=== PATIENT | female | born 1965 | race Caucasian/White ===

== ENCOUNTER 2022-05-05 09:37 | Emergency (ER) | payer OTHER ==
[2022-05-05 10:12] VITALS: PULSE 65; O2SAT 98
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
[2022-05-05 10:40] LABS: Basophil (Absolute #) 0.02 x10^3/uL (0-0.4); Eosinophil % 2.7 % (0.00-5.0); Eosinophil (Absolute #) 0.11 x10^3/uL (0-0.5); Hematocrit 38.9 % (35-47); Hemoglobin 12.5 g/dL (12.0-16.0); Lymphocyte (Absolute #) 1.66 x10^3/uL (1.0-4.6); Lymphocytes % 40.6 % (24.0-44.0); Mean Corpuscular Hemoglobin 30.2 pg (26-32); Mean Corpuscular Hgb Concent. 32.1 g/dL (32-36); Mean Platelet Volume 9.7 fL (7.5-11.0); Monocyte (Absolute #) 0.29 x10^3/uL (0.0-1.3); Monocytes % 7.1 % (0.0-12.0); Neutrophil % 48.9 % (36.0-66.0); Platelet Count 190 x10^3/uL (150-450); Red Blood Count 4.14 x10^6/uL (4.1-5.4); White Blood Count 4.1 x10^3/uL (4.0-10.5)
[2022-05-05 10:52] LABS: Epithelial Cells RARE /HPF (FEW)
[2022-05-05 10:53] LABS: Appearance CLEAR (CLEAR); Bilirubin NEGATIVE (NEGATIVE); Glucose NEGATIVE (NEGATIVE); Ketones NEGATIVE (NEGATIVE); RBC NEGATIVE Ery/ul (0-5)
[2022-05-05 10:54] LABS: Dipstick done @ ? MAIN LAB; Nitrite NEGATIVE (NEGATIVE); Protein,Urine Dip NEGATIVE (Negative); Urine Cultured Indicated? NO; Urobilinogen 0.2 mg/dL (0-1)
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
[2022-05-05 11:04] VITALS: BP 135/89
== END 2022-05-05 11:10 | disposition home or self-care (01) ==
LOC: ED 09:37
DX: S16.1XXA Strain of muscle, fascia and tendon at neck level, initial encounter (principal); S00.03XA Contusion of scalp, initial encounter; S00.83XA Contusion of other part of head, initial encounter; V50.5XXA Driver of pick-up truck or van injured in collision with pedestrian or animal in traffic accident, initial encounter; Y92.411 Interstate highway as the place of occurrence of the external cause; H53.8 Other visual disturbances; Z79.891 Long term (current) use of opiate analgesic
CPT/HCPCS: 36415; 70450; 70486; 71045; 72125; 81015; 85025; 99285

== ENCOUNTER 2022-06-19 06:11 | Day surgery (SDC) | payer OTHER ==
[2022-06-19] MEDS ORDERED: Lactated Ringers 1,000 ML IV ONE (06:27)
[2022-06-19] MEDS ORDERED: Marcaine Mpf 0.5% Vial 30 Ml ONE (06:30)
[2022-06-19] MEDS ORDERED: XYLOCAINE 1% HCL 20 ML MDV ONE (06:31)
[2022-06-19] MEDS ORDERED: SUBLIMAZE 100 MCG/2 ML ONE (07:16)
[2022-06-19] MEDS ORDERED: DIPRIVAN 200 MG/20 ML IV ONE (07:16)
[2022-06-19] MEDS ORDERED: Xylocaine-Mpf 2% 5 Ml Vial ONE (07:16)
[2022-06-19] MEDS ORDERED: Versed 2 MG/2 ML Injection ONE (07:16)
[2022-06-19] MEDS ORDERED: Lactated Ringers 1,000 ML IV SCH (08:00)
[2022-06-19] MEDS ORDERED: KEFZOL 1 GM ONE (08:16)
[2022-06-19 08:44] VITALS: O2SAT 99
[2022-06-19 09:22] VITALS: BP 123/83; PULSE 53
--- NOTE | 2022-06-19 10:57 | OP ---
SURGERY DATE/TIME: 06/19/2022 0723 PREOPERATIVE DIAGNOSES: 1) Left plantar fasciitis. 2) Chronic left foot pain. 3) Equinus. POSTOPERATIVE DIAGNOSES: 1) Left plantar fasciitis. 2) Chronic left foot pain. 3) Equinus. PROCEDURE: Left foot in-step plantar fasciotomy. SURGEON: Antoine Laboy DPM. CHEMISTRY LAB INSTRUCTOR: None. ANESTHESIA: General. HEMOSTASIS: Ankle tourniquet set 250 mm of Mercury for 11 total tourniquet minutes. ESTIMATED BLOOD LOSS: Less than 3 cc. MATERIALS: 3-0 Vicryl, 3-0 Nylon. INJECTABLES: 20 cc of a 1:1 mixture of 1% of lidocaine plain injected in a V-block type fashion to the left foot. INDICATION FOR SURGERY: Chiquita is a very pleasant 56-year-old female who is well known to my service for chronic plantar fasciitis to the bilateral lower extremity. 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 Inflammatory panel was obtained demonstrating no inflammatory arthropathy that explains this issue. The patient has been roman catholic and has reached the point where she no longer has equinus which was felt to be the driving force of her pain. At this point, we have exhausted all conservative modalities. Discussion with patient in regards to potential ultrasound or shockwave therapy was discussed and she would like to proceed with the surgical option of the plantar fasciotomy. The patient understands all risks, benefits and complications including but not limited to infection, hematoma, seroma, possibility of continued pain, possibility of change in biomechanics as this does change the Windlass mechanism of the foot. She understands all of these risks and wishes to proceed at this time. DESCRIPTION OF PROCEDURE AND FINDINGS: The patient was brought into the OR and placed on the OR table in the supine position. At this time, general anesthesia was administered until the patient was sedated. At this time, a well-padded ankle tourniquet was applied to the patient's left ankle and the tourniquet was set to 250 mm of Mercury. At this time, the left foot was prepped and draped in the typical sterile fashion and lowered onto the surgical field. At this time a ruler was utilized to measure from the weightbearing surface with the Windlass mechanism activated 1 cm medial to the plantar fascia on the nonweightbearing surface of the left foot and extending over the plantar fascia by about 1 cm as well. The skin marker was utilized to delineate the incision. At this time an incision was made utilizing a 15 blade. An Esmarch was used to exsanguinate the foot and the tourniquet was inflated. A 15 blade was utilized to make an incision being careful not to damage any neurovascular structures along the way this was deepened with blunt dissection of the plantar fascia. Once the plantar fascia was identified, a new 15 blade was utilized to make an incision just so that the muscle belly underneath in the first layer of the intrinsic muscles was visible. At this time an incision was carried out incising approximately one-third of the plantar fascia. Following this, copious amounts of sterile saline were utilized to flush the surgical site. 3-0 Vicryl was used to coapt the subcutaneous skin in a buried simple-type fashion and then a 3-0 Nylon was utilized in a horizontal mattress-type fashion to coapt the skin. The tourniquet was let down at a total of 11 minutes total tourniquet time. Dressing consisting of Betadine, Adaptic, 4x4, Kerlix and MONA was applied to the left lower extremity and a postoperative boot was applied. At this time the patient was reversed from anesthesia and returned to the postoperative anesthesia care unit with vital signs stable and vascular status intact. Postoperative orders as indicated in the patient's discharge chart.
== END 2022-06-19 09:15 | disposition home or self-care (01) ==
LOC: SDC 06:11
PROVIDERS: ATTEND Podiatrist Foot & Ankle Surgery
DX: M72.2 Plantar fascial fibromatosis (principal); M79.672 Pain in left foot; M21.6X2 Other acquired deformities of left foot
CPT/HCPCS: J0690; J2250; J2704; J3010

== ENCOUNTER 2022-07-31 06:12 | Day surgery (SDC) | payer OTHER ==
[2022-07-31] MEDS ORDERED: Lactated Ringers 1,000 ML IV ONE ×2 (06:29→07:12)
[2022-07-31] MEDS ORDERED: Versed 2 MG/2 ML Injection IV PRN (07:07)
[2022-07-31] MEDS ORDERED: KEFZOL 1 GM/50 ML PREMIX** 1 GM/50 ML IVPB IV ONE (07:12)
[2022-07-31] MEDS ORDERED: Versed 2 MG/2 ML Injection ONE (07:12)
[2022-07-31] MEDS ORDERED: CEFAZOLIN 2 GM-D5W BAG** 2 GM/50 ML ML IV ONE (07:15)
[2022-07-31] MEDS ORDERED: Lactated Ringers 1,000 ML IV SCH (07:30)
[2022-07-31] MEDS ORDERED: CEFAZOLIN 2 GM-D5W BAG** 2 GM/50 ML ML IV SCH (07:30)
[2022-07-31] MEDS ORDERED: SUBLIMAZE 100 MCG/2 ML ONE (08:43)
[2022-07-31] MEDS ORDERED: Decadron 4 MG INJ ONE (08:43)
[2022-07-31] MEDS ORDERED: Xylocaine-Mpf 2% 5 Ml Vial ONE (08:43)
[2022-07-31] MEDS ORDERED: DIPRIVAN 200 MG/20 ML IV ONE (08:43)
[2022-07-31] MEDS ORDERED: Zofran 4 MG/2 ML VIAL ONE (08:43)
[2022-07-31] MEDS ORDERED: Ephedrine Sulfate 50 MG/ML ONE (09:47)
[2022-07-31 10:35] VITALS: BP 116/77; PULSE 52; O2SAT 98
--- NOTE | 2022-08-03 11:53 | OP ---
SURGERY DATE/TIME: 07/31/2022 0904 PREOPERATIVE DIAGNOSES: 1) Right foot plantar fasciitis. 2) Right foot pain. POSTOPERATIVE DIAGNOSES: 1) Right foot plantar fasciitis. 2) Right foot pain. PROCEDURE: Right foot in-step fasciotomy. SURGEON: Antoine Laboy DPM. MANAGER TALENT ACQUISITION: None. ANESTHESIA: General. HEMOSTASIS: Ankle tourniquet set 250 mm of Mercury for total of 5 total tourniquet minutes. ESTIMATED BLOOD LOSS: Minimal. INJECTABLES: 30 cc of a 1:1 mixture of 1% of lidocaine plain and 0.5% bupivacaine plain injected in an ankle block-type fashion. INDICATION FOR SURGERY: Chiquita is a very pleasant 56-year-old female patient of mine who has been seen for bilateral plantar fasciitis for almost over a year at this point. The patient has gotten to the point where the injections do help for up to eight weeks. However, we have chronically addressed pain with injections and she has failed physical therapy as well as other conservative modalities. The patient recently, within the last six weeks, had her left foot taken care of to which she has noticed a significant improvement already having had the procedure done. At this time she would like to proceed with her right foot. The patient understands all risks, benefits and complications of the procedure including but not limited to infection, hematoma, seroma, possibility of delayed healing and nonwound healing. From that standpoint the patient understands these risks and wishes to proceed. DESCRIPTION OF PROCEDURE AND FINDINGS: The patient was brought into the OR and placed on the OR table in the supine position. At this time, general anesthesia was administered until the patient was sedated. A well-padded ankle tourniquet was applied to the patient's right ankle and the tourniquet was set to 250 mm of Mercury. At this time, the right lower extremity was prepped and draped in the typical sterile fashion and lowered onto the surgical field. At this time attention was directed 1.5 cm from the weightbearing surface at the medial aspect of the in-step, the non-weightbearing surface of the medial aspect of the foot. A 2 cm incision was made utilizing a 15 blade this was carried down bluntly to the level of the plantar fascia. One-third of the plantar fascia was incised of the medial band and a portion of the central band. Following this, it was inspected. The muscle belly was identified and deemed to be visible however not damaged. Following this copious amounts of sterile saline were utilized to flush the surgical site. Following this, 4-0 Monocryl was utilized to coapt the subcutaneous skin edges in a simple interrupted-type fashion and the skin was coapted utilizing 3-0 Nylon in a horizontal mattress-type fashion. The tourniquet was let down at this time with a total of 5 total tourniquet minutes. The patient was then reversed from anesthesia and returned to the postoperative anesthesia care unit with vital signs stable and vascular status intact. The patient handled the anesthesia as well as the procedure without significant complications. Postoperative orders as indicated in the patient's discharge chart.
== END 2022-07-31 11:00 | disposition home or self-care (01) ==
LOC: SDC 06:12
PROVIDERS: ATTEND Podiatrist Foot & Ankle Surgery
DX: M72.2 Plantar fascial fibromatosis (principal); M79.671 Pain in right foot
CPT/HCPCS: 28008; J0690; J1100; J2250; J2405; J2704; J3010

== ENCOUNTER 2023-06-04 05:55 | Day surgery (SDC) | payer OTHER ==
[2023-06-04] MEDS ORDERED: Lactated Ringers 1,000 ML IV SCH (06:30)
[2023-06-04] MEDS ORDERED: Xylocaine-Mpf 2% 5 Ml Vial ONE (07:24)
[2023-06-04] MEDS ORDERED: DIPRIVAN 200 MG/20 ML IV ONE ×2 (07:24→07:38)
[2023-06-04] MEDS ORDERED: ROBINUL ONE (07:34)
[2023-06-04] MEDS ORDERED: ATROPINE SULFATE 1MG ONE (07:36)
--- NOTE | 2023-06-04 08:15 | OP ---
SURGERY DATE/TIME: 06/04/2023 PREOPERATIVE DIAGNOSIS: Screening exam. POSTOPERATIVE DIAGNOSIS: Normal colon. PROCEDURE: Colonoscopy. SURGEON: Dr. Fuentes. ANESTHESIA: Medications given by anesthesia department. HISTORY: The patient is a 57-year-old white female presenting now for her first screening colonoscopy. She was appraised of the risks of the procedure including the risk of perforation, phlebitis, untoward reaction to medication, bleeding and missed lesions. The patient verbalized her understanding and desired to have the procedure performed. DESCRIPTION OF PROCEDURE: The patient was given the medications by the anesthesia department. She had continuous pulse oximetry, ECG monitoring and intermittent blood pressure monitoring during the examination. She was placed in the left lateral decubitus position. A digital rectal examination was performed and revealed normal anal sphincter tone and no masses. The flexible Olympus pediatric colonoscope was used to intubate the rectum. A view of the colon was developed sequentially to the cecum. Upon insertion and withdrawal, including a retroflex view in the rectum, no mucosal lesions were encountered. The scope was removed from the patient who tolerated the procedure well and was sent back to OP recovery in good condition. The prep was noted to be fair to good.
[2023-06-04 08:25] VITALS: RESP 18
[2023-06-04 08:37] VITALS: O2SAT 96
[2023-06-04 08:48] VITALS: BP 129/80; PULSE 66; TEMP 97
== END 2023-06-04 09:12 | disposition home or self-care (01) ==
LOC: SDC 05:55
PROVIDERS: ATTEND Family Medicine
DX: Z12.11 Encounter for screening for malignant neoplasm of colon (principal)
CPT/HCPCS: J0461; J2704